=== PATIENT | female | born 1970 | race Caucasian/White ===

== ENCOUNTER 2021-09-04 07:59 | Emergency (ER) | payer OTHER, MEDICAID, SELFPAY ==
--- NOTE | 2021-09-04 08:10 | W.ED.COVID ---
HPI - COVID General: Chief Complaint: Shortness of Breath/Dyspnea Stated Complaint: Covid Symptoms Time Seen by Provider: 09/04/21 08:09 Source: patient Mode of arrival: ambulatory Limitations: no limitations Triage information: Has fever, cough or shortness of breath. History of Present Illness: 50-year-old female presents emergency room with complaints of COVID-like symptoms. She has had myalgias nonproductive cough pleuritic chest pain chest pain only with deep breath or with cough. She is not had any diarrhea. She not had any pain at rest. She is not normally on oxygen she uses an inhaled corticosteroid and albuterol as needed. No vomiting no diarrhea. Symptoms started 2 days ago. MD complaint: has COVID symptoms COVID 19 common symptoms: positive fever(s), chills, cough, non-productive cough, dyspnea, body aches, headache(s) and nasal congestion; negative nausea, vomiting or diarrhea COVID 19 other sytmptoms: positive pleuritic pain; negative chest pain Onset (ago): day(s) Severity: mild Pertinent comorbid conditions: COPD/respiratory disease Treatment prior to arrival: none COVID Results: No Data to Display Review of Systems Const: Reports: fever(s), chills and body aches ENMT: Reports: nasal congestion Card: Denies: chest pain, edema, dyspnea on exertion or orthopnea Resp: Reports: dyspnea and non-productive cough GI: Denies: abdominal pain, nausea, vomiting, hematemesis, coffee ground emesis, diarrhea, constipation, bloating, hematochezia or melena : Denies: flank pain, difficulty voiding, dysuria, urinary frequency or urinary urgency Skin/Breast: Denies: rash or pruritus Neuro: Reports: headache(s) PFS ED PFSH: Medical History (Updated 09/04/21 @ 08:29 by Neel Basilio DO) COPD (chronic obstructive pulmonary disease) Surgical History (Updated 09/04/21 @ 08:29 by Neel Basilio DO) No significant past surgical history Social History (Updated 09/04/21 @ 08:29 by Neel Basilio DO) Smoking and tobacco status: current every day smoker Physical Exam Const: COMMON NORMALS: no acute distress GENERAL APPEARANCE: cooperative and comfortable ORIENTATION/CONSCIOUSNESS: Yes awake, Yes oriented to person, Yes oriented to place and Yes oriented to time HENMT: COMMON NORMALS: normocephalic, atraumatic and hearing grossly normal bilaterally HEAD & SCALP: normocephalic and atraumatic Neck/C-Spine: COMMON NORMALS: no JVD Resp: COMMON NORMALS: normal respiratory effort, No retractions, No use of accessory muscles and clear to auscultation bilaterally AUSCULTATION: clear to auscultation bilaterally Cardio: COMMON NORMALS: no JVD, regular rate, regular rhythm and No murmurs present (Cardio) RATE: regular rate RHYTHM: regular rhythm GI: COMMON NORMALS: Soft to palpation and No hepatosplenomegaly present AUSCULTATION: Yes normoactive bowel sounds PALPATION: Yes Soft to palpation, No Tenderness to palpation present (GI), No Guarding due to palpation present (GI) and Yes No hepatosplenomegaly present Extremity: COMMON NORMALS: normal to inspection, capillary refill normal, no clubbing, cyanosis or edema, no calf tenderness and no pedal edema Neuro: SENSORIUM/ORIENTATION: Yes oriented to person, Yes oriented to place and Yes oriented to time Skin: COMMON NORMALS: no rashes or lesions noted GENERAL SKIN EXAM: no rashes or lesions noted Course Vital Signs: Vital signs: Vital Signs Temperature 98.9 F 09/04/21 08:11 Pulse Rate 93 09/04/21 08:11 Respiratory Rate 18 09/04/21 08:11 Blood Pressure 142/85 09/04/21 08:11 Pulse Oximetry 98 09/04/21 08:11 [facility] - COVID Medical Decision Making COVID swab done. On exam there is no respiratory distress there is no wheezing rhonchi or rails. Her chest pain is pleuritic. We will go ahead and get a Covid swab. Discharge home we will contact her with the results. Self quarantined results available Medical Records I reviewed the patient's medical records. Lab Data I reviewed the patient's lab results. No Data to Display Discharge Plan Discharge Patient Disposition: Home Clinical Impression: Suspected COVID-19 virus infection, COPD (chronic obstructive pulmonary disease) Condition: Stable Prescriptions: New albuterol sulfate 90 mcg/actuation HFA aerosol inhaler 2 inh INHALATION Q4H PRN (Reason: shortness of breath or wheezing) Qty: 18 0RF dexamethasone 6 mg tablet 6 mg PO DAILY Qty: 7 0RF Discharge Orders: Discharge ED (Routine); Ordered 09/04/21 Ordered By: Neel Basilio Referrals: Marck Daly, [Family Provider] - Discharge Diet: Usual diet Discharge Activity: Increase activity as tolerated Patient Instructions: Opioid Safety Activity Restrictions/Additional Instructions: You were swabbed for Covid in the emergency room we will call you with the results once they become available. Recommend you avoid exposure to others until the results are called to you. If you have any worsening problems check with your primary care doctor or return to the emergency room. Coding Level of Care Code ED [employer] Block Maker for Chauncey Otero
[2021-09-04 08:11] VITALS: BP 142/85; PULSE 93; RESP 18; TEMP 37.2; O2SAT 98; BMI 31.2
[2021-09-04 10:21] LABS: Adenovirus Not Detected (NOT DETECT); Chlamydia Pneumoniae Not Detected (NOT DETECT); Coronavirus 229E,HKU1,NL63,OC4 Not Detected (NOT DETECT); Human Metapneumovirus Not Detected (NOT DETECT); Human Rhinovirus/Enterovirus Not Detected (NOT DETECT); Influenza A Detected (NOT DETECT); Influenza A H1 Not Detected (NOT DETECT); Influenza A H1-2009 Not Detected (NOT DETECT); Influenza A H3 Detected (NOT DETECT); Influenza B Not Detected (NOT DETECT); Mycoplasma Pneumoniae Not Detected (NOT DETECT); Parainfluenza Virus Type 1 Not Detected (NOT DETECT); Parainfluenza Virus Type 2 Not Detected (NOT DETECT); Parainfluenza Virus Type 3 Not Detected (NOT DETECT); Parainfluenza Virus Type 4 Not Detected (NOT DETECT); Respiratory Syncytial Virus A Not Detected (NOT DETECT); Respiratory Syncytial Virus B Not Detected (NOT DETECT); SARS-COV-2 Not Detected (NOT DETECT)
[2021-09-04 10:21] LABS: Influenza A Detected (NOT DETECT); Influenza A H1 Not Detected (NOT DETECT); Influenza A H1-2009 Not Detected (NOT DETECT); Influenza A H3 Detected (NOT DETECT); Influenza B Not Detected (NOT DETECT); Results from Genmark
== END 2021-09-04 08:25 | disposition home or self-care (01) ==
PROVIDERS: Emergency Provider Family Medicine
DX: Z20.822 Contact with and (suspected) exposure to COVID-19 (principal); J44.9 Chronic obstructive pulmonary disease, unspecified; F17.210 Nicotine dependence, cigarettes, uncomplicated
CPT/HCPCS: 87631; 87635; 99282